=== PATIENT | female | born 1955 | race Caucasian/White ===

== ENCOUNTER 2021-11-26 05:53 | Day surgery (SDC) | payer MEDICARE, OTHER ==
[2021-11-25 09:27] VITALS: BMI 26.7
[2021-11-26] MEDS ORDERED: PROPOFOL 20 ML ONE ×3 (07:22)
[2021-11-26] MEDS ORDERED: BUPIVACAINE HCL/PF 0.25% (2.5MG/ML) 10 ML VIAL ONE (07:22)
[2021-11-26] MEDS ORDERED: LIDOCAINE HCL 2% (20ML MULTI-DOSE VIAL) ONE (07:22)
[2021-11-26 09:07] VITALS: BP 113/65; PULSE 73; TEMP 97.8
== END 2021-11-26 09:50 | disposition home or self-care (01) ==
LOC: FASU 05:53
PROVIDERS: ATTEND Orthopaedic Surgery Hand Surgery
PROC: 01N50ZZ Release Median Nerve, Open Approach (ICD-10-PCS; principal; 2021-11-26 08:31)
DX: G56.02 Carpal tunnel syndrome, left upper limb (principal)
CPT/HCPCS: 82962